=== PATIENT | male | born 1995 | race Caucasian/White ===

== ENCOUNTER → 2019-02-04 | Outpatient (CLI) | payer SELFPAY ==
[2019-02-04 12:50] LABS: PH-URINE 6.5 (5.0 - 8.0); URINE APPEARANCE CLEAR; URINE BILIRUBIN NEGATIVE (NEGATIVE); URINE BLOOD NEGATIVE (NEGATIVE); URINE COLOR YELLOW; URINE GLUCOSE NEGATIVE (NEGATIVE); URINE KETONE NEGATIVE (NEGATIVE); URINE LEUKOCYTE ESTERASE TRACE (NEGATIVE); URINE NITRATE NEGATIVE (NEGATIVE); URINE PROTEIN(semi-quant) TRACE mg/dL (NEGATIVE)
[2019-02-04 12:51] LABS: URINE MUCUS PRESENT (NOT PRESENT)
[2019-02-04 12:52] LABS: URINE UROBILINOGEN NORMAL (NORMAL)
== END ==
LOC: LAB 12:28
PROVIDERS: Nurse Practitioner Family
DX: R30.0 Dysuria (principal)